=== PATIENT | male | born 1980 | race Two or more races ===

== ENCOUNTER 2017-05-09 09:39 | Emergency (ER) | payer OTHER ==
[~2017-05-09] VITALS: Ht 172.7 cm; Wt 86.2 kg
[2017-05-09 09:48] VITALS: BP 145/85
[2017-05-09] MEDS: Ketorolac 30mg Inj IM ONE (10:03)
[2017-05-09] MEDS: Tetanus/Diptheria/Pertussis Vaccine 0.5ml Syr IM ONE (10:03)
[2017-05-09] MEDS: Morphine Sulfate 4mg/ml Inj IM ONE (10:04)
[2017-05-09] MEDS ORDERED: IBUPROFEN600 MG ORAL (11:11)
[2017-05-09] MEDS ORDERED: AUGMENTIN 875-1 EAC1 ORAL (11:11)
[2017-05-09] MEDS ORDERED: ACETAMINOPHEN-1 EAC1 ORAL (11:11)
[2017-05-09] MEDS ORDERED: Bacitracin Oint UD TOPIC ONE (11:21)
[2017-05-09] MEDS: Augmentin 875mg Tab ORAL ONE (11:24)
--- NOTE | 2017-05-09 11:31 | Emergency Room Report ---
History of Present Illness General Chief Complaint: Puncture Wound Source: Patient Present Illness HPI 36-year-old male presents ED for evaluation. Patient states that work today he accidentally shot a nail into his right thumb using nailgun. Patient presents with nail in his right thumb. Patient states pain is a 10 out of 10, throbbing , nonradiating. Denies any other injuries. Tetanus unknown. No other aggravating or relieving factors. Denies any other associated symptoms Allergies: Coded Allergies: No Known Allergies (Unverified , 05/09/17) Patient History Past Medical History: none Past Surgical History: none Pertinent Family History: none Social History: Denies: alcohol use, drug use, smoking Immunizations: UTD Reviewed Nursing Documentation: PMH: Agreed, PSxH: Agreed Nursing Documentation-PMH Past Medical History: No Stated History Review of Systems All Other Systems: negative except mentioned in HPI Physical Exam Vital Signs Date Time Temp Pulse Resp B/P Pulse Ox O2 Delivery O2 Flow Rate FiO2 05/09/17 09:41 97.5 82 18 145/85 98 Room Air Sp02 EP Interpretation: reviewed, normal General Appearance: no apparent distress, alert, GCS 15, non-toxic Head: normocephalic Eyes: bilateral eye PERRL, bilateral eye normal inspection ENT: normal ENT inspection Neck: normal inspection Respiratory: normal inspection Cardiovascular #1: normal inspection Gastrointestinal: normal inspection Rectal: deferred Genitourinary: no CVA tenderness Musculoskeletal: other - nail through distal aspect R thumb Neurologic: alert, oriented x3, responsive, motor strength/tone normal, sensory intact, speech normal Psychiatric: judgement/insight normal, memory normal, mood/affect normal, no suicidal/homicidal ideation Skin: normal inspection Lymphatic: normal inspection Procedures Additional Procedure Procedure Narrative foreign body removal Using sterile technique I applied traction to the distal end of the nail and started turning the nail counterclockwise as I pulled back. The nail was effectively removed from the thumb without complication. Patient tolerated the procedure without difficulty Medical Decision Making Diagnostic Impression: Primary Impression: Puncture wound ER Course 36-year-old male presents to ED with nail puncturer wound through his R thumb Differential-fracture, nailbed injury, infection Patient placed on stretcher after initial history physical exam reveals a male in mild distress. There is evidence of a metal nail through and through the distal aspect of the right thumb. Nail did go through the distal aspect of the nailbed Distal pulses intact, sensations intact no active bleeding Patient given morphine for pain, tetanus and Augmentin. xrays shows nail through the distal aspect but not involving any bone Using sterile technique I applied traction and was able to effectively remove the nail without complication Wound is irrigated, dressing applied. Will refer to hand Diagnoses-puncture wound Stable and discharged to home prescription for Motrin, tylenol #3, Augmentin. Followup with hand. Return to ED if symptoms recur or worsen Other X-Ray Diagnostic Results Other X-Ray Diagnostic Results : X-Ray ordered: R hand # of Views/Limited Vs Complete: 3 View Indication: Pain EP Interpretation: Yes Interpretation: no dislocation, no soft tissue swelling, no fractures, other - nail through distal aspect of finger Impression: Other - nail through and through distal R thumb Interpreting ER Provider: Electronically signed by Terrell Abraham MD Last Vital Signs Date Time Temp Pulse Resp B/P Pulse Ox O2 Delivery O2 Flow Rate FiO2 05/09/17 11:17 97.5 05/09/17 09:48 18 145/85 98 Room Air 05/09/17 09:41 82 Status: improved Disposition: HOME, SELF-CARE Condition: Stable Scripts Acetaminophen With Codeine (T#3) (TYLENOL #3 TAB*) Y Tab 1 TAB ORAL Q8H Y for For Pain, #20 TAB Prov: TERRELL ABRAHAM M.D. 05/09/17 Ibuprofen* (MOTRIN*) 600 Mg Tablet 600 MG ORAL Q8H Y for For Pain, #30 TAB 0 Refills Prov: TERRELL ABRAHAM M.D. 05/09/17 Amoxicillin/Potassium Clav 875-125* (AUGMENTIN 875-125 TABLET*) 1 Each Tablet 1 TAB ORAL TWICE A DAY, #14 TAB Prov: TERRELL ABRAHAM M.D. 05/09/17 Referrals: SIOMARA PEDERSEN PERRY M.D. NOT CHOSEN ZULLY/,REFERRING (PCP) Departure Forms: Return to Work Return to Work Date: May 11, 2017 Work Restrictions: No Heavy Lifting Patient Instructions: Puncture Wound TERRELL ABRAHAM M.D. May 09, 2017 11:31
[2017-05-09 11:36] VITALS: BP 138/80
[2017-05-09 11:40] VITALS: BP 138/80
--- NOTE | 2017-05-09 15:49 | Diagnostic Imaging Report ---
Indication: PAIN nail through right thumb Technique: 3 views right hand Comparison: Findings: A screw or nail is seen within the terminal soft tissues of the right thumb. This appears to abut the bony terminal tuft, but no definite bony disruption is demonstrated. No other evidence of acute fracture or dislocation. The joint spaces are preserved. Impression: Positive for screw or nail within the distal soft tissues of the thumb. No definite associated bony injury
== END 2017-05-09 11:41 | disposition home or self-care (01) ==
LOC: EMR 10:12
DX: S61.041A Puncture wound with foreign body of right thumb without damage to nail, initial encounter (principal); W29.4XXA Contact with nail gun, initial encounter; Y92.89 Other specified places as the place of occurrence of the external cause; Z23 Encounter for immunization
CPT/HCPCS: 73130; 90471; 90715; 96372; 99284; J1885; J2270